=== PATIENT | female | born 1980 | race Two or more races ===

== ENCOUNTER 2021-03-19 11:33 | Emergency (ER) | payer BC, OTHER ==
[~2021-03-19] VITALS: Ht 162.6 cm; Wt 64.0 kg
[2021-03-19] MEDS ORDERED: PANTOPRAZOLE 40 MG/10 ML VIAL INJ IV ONE (12:00)
[2021-03-19] MEDS ORDERED: ONDANSETRON HCL 4 MG/2 ML VIAL IV ONE (12:00)
[2021-03-19] MEDS ORDERED: SODIUM CHLORIDE 0.9% 1,000 ML IVB ONE (12:00)
[2021-03-19 12:12] LABS: Urine Bacteria FEW /hpf (None Seen); Urine Blood Negative /uL (Negative); Urine Mucus MODERATE (None Seen); Urine WBC 5 /hpf (0 - 5)
[2021-03-19 13:40] LABS: Basophils # (auto) 0 10 ^3/uL (0-0.2); Basophils % (auto) 0.3 % (0.0-2.0); Eosinophils # (auto) 0 10 ^3/uL (0-0.8); Eosinophils % (auto) 0.5 % (0.0-7.0); Hematocrit 40.4 % (36.0-46.0); Hemoglobin 13.5 g/dL (12.2-16.2); Lymphocytes # (auto) 1.7 10 ^3/uL (0.4-5.4); Lymphocytes % (auto) 22.8 % (10.0-50.0); Mean Corpuscular Hemoglobin 29.7 pg (28.0-32.0); Mean Corpuscular Hgb Conc. 33.4 g/dL (32.0-36.0); Monocytes # (auto) 0.5 10 ^3/uL (0-1.3); Monocytes % (auto) 6.3 % (0.0-12.0); Neutrophils # (auto) 5.2 10 ^3/uL (1.6-8.6); Neutrophils % (auto) 70.1 % (37.0-80.0); Red Blood Cells 4.54 10^6/uL (4.0-5.20); Red Cell Distribution Width 13.9 % (11.8-14.3); White Blood Cell 7.4 10^3/uL (4.4-10.8)
[2021-03-19 13:56] LABS: Albumin 3.7 g/dL (3.4-5.0); Calcium 8.9 mg/dL (8.5-10.1); Potassium 4.5 mmol/L (3.5-5.1)
[2021-03-19 14:02] LABS: BUN/Creatinine Ratio 25.4; Bilirubin, Total 0.3 mg/dL (0.2-1.0)
[2021-03-19 15:10] VITALS: BP 143/83
== END 2021-03-19 15:30 | disposition home or self-care (01) ==
LOC: ER 11:33
DX: R10.84 Generalized abdominal pain (principal); R07.89 Other chest pain; M19.90 Unspecified osteoarthritis, unspecified site; Z88.0 Allergy status to penicillin
CPT/HCPCS: 36415; 74176; 80053; 81001; 81025; 83690; 85025

== ENCOUNTER 2023-02-20 12:45 | Inpatient (IN) | payer BC ==
[~2023-02-20] VITALS: Ht 162.6 cm; Wt 61.9 kg
[2023-02-20] MEDS ORDERED: SODIUM CHLORIDE 0.9% 1,000 ML IV ONE (13:15)
[2023-02-20 13:51] LABS: Basophils # (auto) 0 10 ^3/uL (0-0.2); Eosinophils # (auto) 0 10 ^3/uL (0-0.8); Lymphocytes # (auto) 1.3 10 ^3/uL (0.4-5.4); White Blood Cell 9.5 10^3/uL (4.4-10.8)
[2023-02-20 13:55] LABS: Basophils % (auto) 0.4 % (0.0-2.0); Hematocrit 38.8 % (36.0-46.0); Hemoglobin 13.1 g/dL (12.2-16.2); Lymphocytes % (auto) 13.5 % (10.0-50.0); Mean Corpuscular Hemoglobin 30.4 pg (28.0-32.0); Mean Corpuscular Hgb Conc. 33.9 g/dL (32.0-36.0); Mean Corpuscular Volume 89.8 fL (80.0-100.0); Monocytes # (auto) 0.8 10 ^3/uL (0-1.3); Monocytes % (auto) 8.7 % (0.0-12.0); Neutrophils # (auto) 7.4 10 ^3/uL (1.6-8.6); Neutrophils % (auto) 77.4 % (37.0-80.0); Red Blood Cells 4.32 10^6/uL (4.0-5.20); Red Cell Distribution Width 20.3 % (11.8-14.3)
[2023-02-20 14:11] LABS: Alanine Aminotransferase 30 U/L (7-40); Albumin 3.4 g/dL (3.2-4.8); Alkaline Phosphatase 229 U/L (46-116); Anion Gap 18 (5-15); Aspartate Aminotransferase 25 U/L (13-40); BUN/Creatinine Ratio 21.4 (10.0-20.0); Bilirubin, Total 0.6 mg/dL (0.2-1.0); Blood Urea Nitrogen 22 mg/dL (9-23); Calcium 8.9 mg/dL (8.5-10.1); Carbon Dioxide 21 mmol/L (20-30); Chloride 94 mmol/L (98-107); Glucose 100 mg/dL (74-106); Potassium 4.9 mmol/L (3.5-5.1); Sodium 133 mmol/L (136-145)
[2023-02-20 14:12] LABS: Total Protein 6.2 g/dL (5.7-8.2)
[2023-02-20 14:25] LABS: Platelet Estimate Markedly Increased
[2023-02-20 14:26] LABS: Giant Platelets Few; Ovalocytes FEW; Stomatocytes Many; Target Cell FEW
[2023-02-20] MEDS ORDERED: LACTATED RINGER'S 2,000 ML IV ONE (16:00)
[2023-02-20 18:37] VITALS: PULSE 125; RESP 22; O2SAT 96
[2023-02-20 18:44] LABS: Urine Bacteria NONE SEEN /hpf (None Seen); Urine Blood Negative /uL (Negative); Urine Clarity HAZY (Clear); Urine Color Yellow (Yellow); Urine Hyaline Cast FEW /lpf (0 - 2); Urine Mucus FEW (None Seen); Urine Protein, UAD 1+ (Negative); Urine WBC 22 /hpf (0 - 5); Urine pH 5.5 (5.0-8.0)
[2023-02-20 19:25] VITALS: PULSE 129; RESP 22; O2SAT 97
[2023-02-20] MEDS ORDERED: ONDANSETRON HCL 4 MG/2 ML VIAL IV ONE (19:45)
[2023-02-20] MEDS ORDERED: HYDROmorphone HCL 2 MG/ML VL/or syr IV ONE (19:45)
[2023-02-20] MEDS ORDERED: PROCHLORPERAZINE EDISYLATE 5 MG/ML 2ML VIAL IV ONE (21:00)
[2023-02-20] MEDS ORDERED: LEVE500T40 PO (23:31)
[2023-02-20] MEDS ORDERED: POTA10TA51 PO (23:31)
[2023-02-20] MEDS ORDERED: MEGE20TA3 PO (23:31)
[2023-02-20] MEDS ORDERED: LOSA50TA46 PO (23:31)
[2023-02-20] MEDS ORDERED: PROC10TA6 PO (23:31)
[2023-02-20] MEDS ORDERED: DULO20CA PO (23:31)
[2023-02-20] MEDS ORDERED: GABA-1250 PO (23:31)
[2023-02-20] MEDS ORDERED: ZOFR4T PO (23:31)
[2023-02-20] MEDS ORDERED: HYDR-4798 PO (23:31)
[2023-02-20] MEDS ORDERED: ERGO1CAP23 PO (23:31)
[2023-02-20] MEDS ORDERED: OLAN20TA PO (23:31)
[2023-02-21] VITALS (7 sets, daily range): BP systolic 122–136; BP diastolic 80–95; PULSE 97–121; RESP 16–19; TEMP 97.1–98.4; O2SAT 97–99
[2023-02-21] MEDS ORDERED: ONDANSETRON HCL 4 MG/2 ML VIAL IV ONE (04:15)
[2023-02-21] MEDS ORDERED: HYDROmorphone HCL 2 MG/ML VL/or syr IV ONE (04:15)
[2023-02-21] MEDS: D5W/SOD CHLO 0.9% 1,000 ML IV SCH ×2 (04:39→18:48)
[2023-02-21] MEDS: ONDANSETRON HCL 4 MG/2 ML VIAL IV PRN ×4 (08:37→20:44)
[2023-02-21] MEDS: MORPHINE SULFATE INJ 2 MG/ml SYRG IV PRN ×3 (08:38→20:47)
[2023-02-21] MEDS: fentaNYL 50MCG/HR 50 MCG/HR PAT TD SCH (12:13)
[2023-02-22] VITALS (8 sets, daily range): BP systolic 130–138; BP diastolic 80–108; PULSE 111–124; RESP 17–95; TEMP 97.1–98; O2SAT 98–100
[2023-02-22] MEDS: ONDANSETRON HCL 4 MG/2 ML VIAL IV PRN ×3 (00:47→20:07)
[2023-02-22] MEDS: MORPHINE SULFATE INJ 2 MG/ml SYRG IV PRN ×4 (00:48→20:10)
[2023-02-22] MEDS ORDERED: MORPHINE SULFATE INJ 2 MG/ml SYRG IV ONE (03:30)
[2023-02-22 05:57] LABS: Basophils # (auto) 0 10 ^3/uL (0-0.2); Basophils % (auto) 0.3 % (0.0-2.0); Eosinophils # (auto) 0 10 ^3/uL (0-0.8); Eosinophils % (auto) 0.2 % (0.0-7.0); Hematocrit 32.7 % (36.0-46.0); Hemoglobin 10.9 g/dL (12.2-16.2); Lymphocytes # (auto) 1.6 10 ^3/uL (0.4-5.4); Lymphocytes % (auto) 17.2 % (10.0-50.0); Mean Corpuscular Hemoglobin 29.9 pg (28.0-32.0); Mean Corpuscular Hgb Conc. 33.2 g/dL (32.0-36.0); Mean Corpuscular Volume 90.2 fL (80.0-100.0); Monocytes # (auto) 1.1 10 ^3/uL (0-1.3); Monocytes % (auto) 11.9 % (0.0-12.0); Neutrophils # (auto) 6.4 10 ^3/uL (1.6-8.6); Neutrophils % (auto) 70.4 % (37.0-80.0); Nucleated Red Blood Cells % 0.1 %; Red Blood Cells 3.62 10^6/uL (4.0-5.20); Red Cell Distribution Width 19.9 % (11.8-14.3)
[2023-02-22 06:10] LABS: Alanine Aminotransferase 20 U/L (7-40); Albumin 3.1 g/dL (3.2-4.8); Alkaline Phosphatase 186 U/L (46-116); Anion Gap 10 (5-15); Aspartate Aminotransferase 19 U/L (13-40); BUN/Creatinine Ratio 18.1 (10.0-20.0); Blood Urea Nitrogen 13 mg/dL (9-23); Calcium 8.1 mg/dL (8.7-10.4); Carbon Dioxide 23 mmol/L (20-30); Chloride 103 mmol/L (98-107); Glucose 122 mg/dL (74-106); Potassium 3.5 mmol/L (3.5-5.1); Sodium 136 mmol/L (136-145)
[2023-02-22 06:11] LABS: Bilirubin, Total 0.5 mg/dL (0.2-1.0); Total Protein 5.6 g/dL (5.7-8.2)
[2023-02-22] MEDS: D5W/SOD CHLO 0.9% 1,000 ML IV SCH ×3 (06:28→21:26)
[2023-02-22] MEDS ORDERED: IOHEXOL 300 MG/ML 100ML BOTTLE IJ ONE (12:15)
[2023-02-22 15:28] LABS: Magnesium 1.9 mg/dL (1.6-2.6)
[2023-02-22 15:29] LABS: Phosphorus 2.4 mg/dL (2.4-5.1)
[2023-02-22] MEDS ORDERED: POTASSIUM PHOSPHATE 22 MEQ in SODIUM CHL 0.9% 100 ML IV ONE (16:30)
[2023-02-22] MEDS ORDERED: TPN PER PHARMACY 0 ML IV SCH (16:30)
[2023-02-22] MEDS ORDERED: AMINO ACID INFUSION IN D10W 1,000 ML IV NR (20:00)
[2023-02-22 23:12] LABS: Gastric Occult Blood Positive (Negative)
[2023-02-23] VITALS (8 sets, daily range): BP systolic 126–135; BP diastolic 89–96; PULSE 108–122; RESP 14–20; TEMP 97.5–98.7; O2SAT 96–100
[2023-02-23] MEDS ORDERED: DEXTROSE (50%) 50ML SYRG IV SCH
[2023-02-23] MEDS: ACCU-CHEK COMFORT CURVE STRIP VI SCH ×4 (00:26→18:00)
[2023-02-23] MEDS: D5W/SOD CHLO 0.9% 1,000 ML IV SCH ×3 (03:15→18:45)
[2023-02-23] MEDS: ONDANSETRON HCL 4 MG/2 ML VIAL IV PRN ×4 (04:14→20:34)
[2023-02-23] MEDS: MORPHINE SULFATE INJ 2 MG/ml SYRG IV PRN ×4 (04:16→20:35)
[2023-02-23] MEDS: InsuLIN REG 1unit/0.01ml Soln (100units/ml) SC SCH ×4 (05:28→18:00)
[2023-02-23 06:21] LABS: Hemoglobin 11.8 g/dL (12.2-16.2); Mean Corpuscular Hemoglobin 29.6 pg (28.0-32.0); Mean Corpuscular Hgb Conc. 32.8 g/dL (32.0-36.0); Mean Corpuscular Volume 90.4 fL (80.0-100.0); Red Blood Cells 3.99 10^6/uL (4.0-5.20); White Blood Cell 8.9 10^3/uL (4.4-10.8)
[2023-02-23 06:37] LABS: Alanine Aminotransferase 19 U/L (7-40); Albumin 3.2 g/dL (3.2-4.8); Alkaline Phosphatase 183 U/L (46-116); Anion Gap 11 (5-15); Aspartate Aminotransferase 21 U/L (13-40); BUN/Creatinine Ratio 16.9 (10.0-20.0); Blood Urea Nitrogen 11 mg/dL (9-23); Calcium 8.2 mg/dL (8.7-10.4); Carbon Dioxide 22 mmol/L (20-30); Chloride 105 mmol/L (98-107); Glucose 118 mg/dL (74-106); Magnesium 1.9 mg/dL (1.6-2.6); Potassium 3.5 mmol/L (3.5-5.1); Sodium 138 mmol/L (136-145)
[2023-02-23 06:38] LABS: Bilirubin, Total 0.7 mg/dL (0.2-1.0); Phosphorus 2.8 mg/dL (2.4-5.1); Total Protein 5.9 g/dL (5.7-8.2)
[2023-02-23 06:48] LABS: Band Neutrophils % (manual) 0; Basophils % (manual) 0 (0.0-2.0); Blast Cells 0; Eosinophils % (manual) 0 (0-7); Metamyelocytes % 0; Myelocytes % 0; Reactive Lymphocytes 0
[2023-02-23 06:51] LABS: Triglycerides 210 mg/dL (< 150)
[2023-02-23 08:33] LABS: Lymphocytes % (manual) 13 (10.0-50.0); Monocytes % (manual) 7 (0-12); Platelet Estimate Increased; Promyelocytes % 1
[2023-02-23] MEDS ORDERED: POTASSIUM CHL 20MEQ/100ML 100 ML IV ONE (13:00)
[2023-02-23] MEDS: cefTRIAXone 1GM/50ML D5W 50 ML IV SCH (13:57)
[2023-02-23] MEDS ORDERED: PPN PER PHARMACY IV NR ×9 (20:00)
[2023-02-24] MEDS: cefTRIAXone 1GM/50ML D5W 50 ML IV SCH (09:00)
[2023-02-24 11:20] LABS: Albumin 3.1 g/dL (3.2-4.8); BUN/Creatinine Ratio 17.5 (10.0-20.0); Calcium 8.2 mg/dL (8.5-10.1); Phosphorus 2.8 mg/dL (2.4-5.1); Potassium 4.2 mmol/L (3.5-5.1)
[2023-02-24] MEDS: fentaNYL 50MCG/HR 50 MCG/HR PAT TD SCH (11:30)
[2023-02-24] MEDS: InsuLIN REG 1unit/0.01ml Soln (100units/ml) SC SCH ×2 (12:00→18:00)
[2023-02-24] MEDS: ACCU-CHEK COMFORT CURVE STRIP VI SCH ×2 (12:00→18:00)
[2023-02-24 16:30] VITALS: BP 136/86; PULSE 130; RESP 86; TEMP 98; O2SAT 97
[2023-02-24] MEDS: MORPHINE SULFATE INJ 2 MG/ml SYRG IV PRN ×2 (17:40→22:32)
[2023-02-24] MEDS: ONDANSETRON HCL 4 MG/2 ML VIAL IV PRN ×2 (17:41→22:09)
[2023-02-24] MEDS ORDERED: PPN PER PHARMACY IV NR ×9 (20:00)
[2023-02-24 20:10] LABS: Basophils # (auto) 0 10 ^3/uL (0-0.2); Basophils % (auto) 0.1 % (0.0-2.0); Eosinophils # (auto) 0 10 ^3/uL (0-0.8); Eosinophils % (auto) 0.1 % (0.0-7.0); Hematocrit 35.9 % (36.0-46.0); Hemoglobin 11.5 g/dL (12.2-16.2); Lymphocytes # (auto) 1.6 10 ^3/uL (0.4-5.4); Lymphocytes % (auto) 13.4 % (10.0-50.0); Mean Corpuscular Hgb Conc. 32.1 g/dL (32.0-36.0); Mean Corpuscular Volume 90.2 fL (80.0-100.0); Monocytes # (auto) 1.2 10 ^3/uL (0-1.3); Monocytes % (auto) 10.2 % (0.0-12.0); Neutrophils # (auto) 9.1 10 ^3/uL (1.6-8.6); Neutrophils % (auto) 76.2 % (37.0-80.0); Nucleated Red Blood Cells % 0.2 %; Red Blood Cells 3.98 10^6/uL (4.0-5.20)
[2023-02-24 20:11] LABS: Red Cell Distribution Width 20.3 % (11.8-14.3)
[2023-02-24 21:34] VITALS: BP 139/97; PULSE 122; RESP 17; TEMP 97.3; O2SAT 97
[2023-02-25] MEDS: ACCU-CHEK COMFORT CURVE STRIP VI SCH ×4 (00:13→18:25)
[2023-02-25] MEDS: ONDANSETRON HCL 4 MG/2 ML VIAL IV PRN ×4 (02:38→18:15)
[2023-02-25] MEDS: MORPHINE SULFATE INJ 2 MG/ml SYRG IV PRN ×4 (02:39→18:23)
[2023-02-25] MEDS: D5W/SOD CHLO 0.9% 1,000 ML IV SCH ×2 (04:10→20:50)
[2023-02-25 04:56] VITALS: BP 122/91; PULSE 117; RESP 18; TEMP 98.2; O2SAT 100
[2023-02-25] MEDS: InsuLIN REG 1unit/0.01ml Soln (100units/ml) SC SCH ×4 (06:00→18:00)
[2023-02-25 06:31] LABS: Alanine Aminotransferase 20 U/L (7-40); Albumin 2.9 g/dL (3.2-4.8); Alkaline Phosphatase 144 U/L (46-116); Anion Gap 8 (5-15); Aspartate Aminotransferase 25 U/L (13-40); BUN/Creatinine Ratio 32.1 (10.0-20.0); Blood Urea Nitrogen 17 mg/dL (9-23); Calcium 7.8 mg/dL (8.7-10.4); Carbon Dioxide 27 mmol/L (20-30); Chloride 102 mmol/L (98-107); Glucose 104 mg/dL (74-106); Magnesium 2.1 mg/dL (1.6-2.6); Potassium 3.9 mmol/L (3.5-5.1); Sodium 137 mmol/L (136-145)
[2023-02-25 06:32] LABS: Bilirubin, Total 0.5 mg/dL (0.2-1.0); Phosphorus 3.3 mg/dL (2.4-5.1); Total Protein 5.1 g/dL (5.7-8.2)
[2023-02-25 08:30] VITALS: BP 136/91; PULSE 116; RESP 17; TEMP 98.3; O2SAT 96
[2023-02-25] MEDS: cefTRIAXone 1GM/50ML D5W 50 ML IV SCH (10:36)
[2023-02-25 12:15] LABS: COVID19 ANTIGEN SOFIA FIA NEGATIVE (NEGATIVE)
[2023-02-25 13:30] VITALS: BP 136/71; PULSE 91; RESP 16; TEMP 98; O2SAT 95
[2023-02-25 16:57] VITALS: BP 124/84; PULSE 121; RESP 19; TEMP 97.5; O2SAT 97
[2023-02-25] MEDS ORDERED: PPN PER PHARMACY IV NR ×9 (20:00)
[2023-02-25 22:00] VITALS: BP 117/80; PULSE 120; RESP 18; TEMP 97.6; O2SAT 99
[2023-02-26] MEDS: ACCU-CHEK COMFORT CURVE STRIP VI SCH ×5 (00:41→23:54)
[2023-02-26] MEDS: ONDANSETRON HCL 4 MG/2 ML VIAL IV PRN (01:52)
[2023-02-26] MEDS: MORPHINE SULFATE INJ 2 MG/ml SYRG IV PRN ×4 (01:53→21:26)
[2023-02-26 05:00] VITALS: BP 109/74; PULSE 122; RESP 18; TEMP 98.4; O2SAT 96
[2023-02-26] MEDS: InsuLIN REG 1unit/0.01ml Soln (100units/ml) SC SCH ×5 (06:15→23:53)
[2023-02-26 06:32] LABS: Alanine Aminotransferase 18 U/L (7-40); Alkaline Phosphatase 121 U/L (46-116); Anion Gap 9 (5-15); Aspartate Aminotransferase 23 U/L (13-40); BUN/Creatinine Ratio 32.6 (10.0-20.0); Blood Urea Nitrogen 15 mg/dL (9-23); Calcium 7.8 mg/dL (8.7-10.4); Carbon Dioxide 26 mmol/L (20-30); Chloride 98 mmol/L (98-107); Glucose 124 mg/dL (74-106); Sodium 133 mmol/L (136-145)
[2023-02-26 06:33] LABS: Bilirubin, Total 0.5 mg/dL (0.2-1.0); Phosphorus 2.5 mg/dL (2.4-5.1); Total Protein 5.3 g/dL (5.7-8.2)
[2023-02-26] MEDS ORDERED: POTASSIUM CHLORIDE 40 MEQ, LIDOCAINE 1% (LOCAL ANESTH.) 4 ML in SODIUM CHL 0.9% 250 ML IV ONE (08:00)
[2023-02-26 09:00] VITALS: BP 109/75; PULSE 109; RESP 75; TEMP 97.5; O2SAT 95
[2023-02-26] MEDS: cefTRIAXone 1GM/50ML D5W 50 ML IV SCH (10:26)
[2023-02-26 13:00] VITALS: BP 112/74; PULSE 114; RESP 16; TEMP 97.3; O2SAT 98
[2023-02-26] MEDS: metroNIDAZOLE 500MG/100ML 100 ML IV SCH ×2 (14:11→22:05)
[2023-02-26] MEDS ORDERED: D5W/SOD CHLO 0.9% 1,000 ML IV SCH (16:30)
[2023-02-26 17:00] VITALS: BP 114/81; PULSE 119; RESP 16; TEMP 97.9; O2SAT 96
[2023-02-26] MEDS: D5W/SOD CHLO 0.9% 1,000 ML IV SCH ×2 (17:57→20:22)
[2023-02-26] MEDS ORDERED: PPN PER PHARMACY IV NR ×21 (20:00)
[2023-02-26 22:00] VITALS: BP 117/78; PULSE 123; RESP 18; TEMP 97.4; O2SAT 98
[2023-02-27] MEDS: MORPHINE SULFATE INJ 2 MG/ml SYRG IV PRN ×6 (00:49→20:49)
[2023-02-27 05:00] VITALS: BP 106/64; PULSE 107; RESP 18; TEMP 98.3; O2SAT 100
[2023-02-27 05:17] LABS: Anion Gap 6 (5-15); Carbon Dioxide 29 mmol/L (20-30); Chloride 97 mmol/L (98-107); Potassium 3.8 mmol/L (3.5-5.1); Sodium 132 mmol/L (136-145)
[2023-02-27 05:19] LABS: Calcium 8.2 mg/dL (8.7-10.4)
[2023-02-27 05:23] LABS: BUN/Creatinine Ratio 31.4 (10.0-20.0); Blood Urea Nitrogen 16 mg/dL (9-23); Glucose 109 mg/dL (74-106)
[2023-02-27 05:26] LABS: Phosphorus 2.7 mg/dL (2.4-5.1)
[2023-02-27] MEDS: InsuLIN REG 1unit/0.01ml Soln (100units/ml) SC SCH ×3 (05:35→17:15)
[2023-02-27] MEDS: metroNIDAZOLE 500MG/100ML 100 ML IV SCH ×3 (05:35→20:52)
[2023-02-27] MEDS: ACCU-CHEK COMFORT CURVE STRIP VI SCH ×3 (05:35→17:15)
[2023-02-27 09:00] VITALS: BP 113/70; PULSE 120; RESP 18; TEMP 98.1; O2SAT 96
[2023-02-27 09:29] LABS: Triglycerides 295 mg/dL (< 150)
[2023-02-27] MEDS: cefTRIAXone 1GM/50ML D5W 50 ML IV SCH (10:50)
[2023-02-27] MEDS: fentaNYL 50MCG/HR 50 MCG/HR PAT TD SCH (11:30)
[2023-02-27 13:00] VITALS: BP 111/76; PULSE 121; RESP 17; TEMP 98.5; O2SAT 99
[2023-02-27 17:00] VITALS: BP 107/72; PULSE 120; RESP 19; TEMP 97.3; O2SAT 98
[2023-02-27] MEDS: D5W/SOD CHLO 0.9% 1,000 ML IV SCH (19:34)
[2023-02-27] MEDS ORDERED: TPN PER PHARMACY IV NR ×10 (20:00)
[2023-02-27 22:00] VITALS: BP 112/77; PULSE 127; RESP 17; TEMP 98.1; O2SAT 100
[2023-02-28] MEDS: ACCU-CHEK COMFORT CURVE STRIP VI SCH ×4 (00:34→17:28)
[2023-02-28] MEDS: MORPHINE SULFATE INJ 2 MG/ml SYRG IV PRN ×4 (02:11→16:33)
[2023-02-28 05:00] VITALS: BP 108/71; PULSE 129; RESP 19; TEMP 98; O2SAT 97
[2023-02-28] MEDS: metroNIDAZOLE 500MG/100ML 100 ML IV SCH ×2 (05:36→13:28)
[2023-02-28] MEDS: InsuLIN REG 1unit/0.01ml Soln (100units/ml) SC SCH ×4 (05:39→17:28)
[2023-02-28 08:00] VITALS: PULSE 119; RESP 20; O2SAT 95
[2023-02-28 08:40] VITALS: BP 108/70; PULSE 119; RESP 17; TEMP 98; O2SAT 100
[2023-02-28] MEDS: cefTRIAXone 1GM/50ML D5W 50 ML IV SCH (08:45)
[2023-02-28 10:22] LABS: Basophils # (auto) 0 10 ^3/uL (0-0.2); Basophils % (auto) 0.2 % (0.0-2.0); Eosinophils # (auto) 0 10 ^3/uL (0-0.8); Eosinophils % (auto) 0.1 % (0.0-7.0); Hematocrit 29.6 % (36.0-46.0); Hemoglobin 9.7 g/dL (12.2-16.2); Mean Corpuscular Hemoglobin 29.4 pg (28.0-32.0); Mean Corpuscular Hgb Conc. 32.7 g/dL (32.0-36.0); Mean Corpuscular Volume 89.9 fL (80.0-100.0); Monocytes # (auto) 1.5 10 ^3/uL (0-1.3); Monocytes % (auto) 8.4 % (0.0-12.0); Neutrophils # (auto) 14.8 10 ^3/uL (1.6-8.6); Neutrophils % (auto) 85.3 % (37.0-80.0); Red Blood Cells 3.29 10^6/uL (4.0-5.20); Red Cell Distribution Width 19.4 % (11.8-14.3); White Blood Cell 17.3 10^3/uL (4.4-10.8)
[2023-02-28 10:36] LABS: Potassium 3.3 mmol/L (3.5-5.1)
[2023-02-28 10:42] LABS: BUN/Creatinine Ratio 35.7 (10.0-20.0)
[2023-02-28 10:44] LABS: Albumin 3.1 g/dL (3.2-4.8); Phosphorus 3.7 mg/dL (2.4-5.1)
[2023-02-28] MEDS ORDERED: POTASSIUM CHL 20MEQ/100ML 100 ML IV ONE (11:45)
[2023-02-28 13:00] VITALS: BP 110/75; PULSE 127; RESP 16; TEMP 98; O2SAT 100
[2023-02-28 13:18] LABS: Magnesium 1.9 mg/dL (1.6-2.6)
[2023-02-28 16:49] VITALS: BP 144/95; PULSE 128; RESP 16; TEMP 98.1; O2SAT 100
[2023-02-28 17:27] VITALS: BP 112/68; PULSE 110; RESP 20
[2023-02-28] MEDS ORDERED: TPN PER PHARMACY IV NR ×10 (20:00)
== END 2023-02-28 19:08 | disposition home or self-care (01) | DRG 872 ==
LOC: ER 12:45 → OVERFLOW 02-21 04:11 → CENTRAL 02-21 10:17 → TELE-CENTR 02-21 11:59 → CENTRAL 02-23 18:53
PROVIDERS: ADMIT Nurse Practitioner; ATTEND Nurse Practitioner Acute Care
PROC: 0D9670Z Drainage of Stomach with Drainage Device, Via Natural or Artificial Opening (ICD-10-PCS; principal; 2023-02-22)
DX: A41.9 Sepsis, unspecified organism (principal); C16.9 Malignant neoplasm of stomach, unspecified; K31.1 Adult hypertrophic pyloric stenosis; N13.6 Pyonephrosis; G93.40 Encephalopathy, unspecified; R64 Cachexia; K56.609 Unspecified intestinal obstruction, unspecified as to partial versus complete obstruction; D69.6 Thrombocytopenia, unspecified; D75.839 Thrombocytosis, unspecified; M19.90 Unspecified osteoarthritis, unspecified site; R79.89 Other specified abnormal findings of blood chemistry; Z20.822 Contact with and (suspected) exposure to COVID-19; Z85.028 Personal history of other malignant neoplasm of stomach; Z68.23 Body mass index [BMI] 23.0-23.9, adult; Z88.0 Allergy status to penicillin; Z92.21 Personal history of antineoplastic chemotherapy; Z83.3 Family history of diabetes mellitus
CPT/HCPCS: 36415; 71045; 74018; 74177; 80048; 80053; 80069; 81001; 82271; 82962; 83605; 83735; 84100; 84478; 84484; 85007; 85025; 85027; 87426; 93005; 93306; 96361; 96374; 96375; G0378; J0696; J1815; J2001; J2405; J3480; J3490; J7042; J7060; J7131

== ENCOUNTER 2023-03-02 02:23 | Inpatient (IN) | payer BC ==
[~2023-03-02] VITALS: Ht 162.6 cm; Wt 75.7 kg
[~2023-03-02 02:23] MED LIST: DULO20CA PO; ERGO1CAP23 PO; GABA-1250 PO; HYDR-4798 PO; LEVE500T40 PO; LOSA50TA46 PO; MEGE20TA3 PO; OLAN20TA PO; POTA10TA51 PO; PROC10TA6 PO; ZOFR4T PO
[2023-03-02 02:28] VITALS: PULSE 112; RESP 30; O2SAT 95
[2023-03-02] MEDS ORDERED: IODIXANOL 320MG/ML 100ML BTL IV ONE (03:13)
[2023-03-02 03:15] LABS: Eosinophils # (auto) 0 10 ^3/uL (0-0.8); Nucleated Red Blood Cells % 0.1 %
[2023-03-02 03:16] LABS: Basophils # (auto) 0 10 ^3/uL (0-0.2); Basophils % (auto) 0.1 % (0.0-2.0); Hematocrit 33.1 % (36.0-46.0); Lymphocytes % (auto) 4.4 % (10.0-50.0); Mean Corpuscular Hemoglobin 29.8 pg (28.0-32.0); Mean Corpuscular Hgb Conc. 33.2 g/dL (32.0-36.0); Mean Corpuscular Volume 89.8 fL (80.0-100.0); Monocytes # (auto) 0.9 10 ^3/uL (0-1.3); Monocytes % (auto) 4.2 % (0.0-12.0); Neutrophils # (auto) 20.2 10 ^3/uL (1.6-8.6); Neutrophils % (auto) 91.3 % (37.0-80.0); Red Blood Cells 3.69 10^6/uL (4.0-5.20); Red Cell Distribution Width 19.5 % (11.8-14.3); White Blood Cell 22.1 10^3/uL (4.4-10.8)
[2023-03-02 03:24] LABS: Alanine Aminotransferase 27 U/L (7-40); Albumin 3.8 g/dL (3.2-4.8); Alkaline Phosphatase 153 U/L (46-116); Anion Gap 8 (5-15); Aspartate Aminotransferase 30 U/L (13-40); BUN/Creatinine Ratio 19.5 (10.0-20.0); Carbon Dioxide 29 mmol/L (20-30); Chloride 95 mmol/L (98-107); Magnesium 2.1 mg/dL (1.6-2.6); Potassium 4.3 mmol/L (3.5-5.1); Sodium 132 mmol/L (136-145)
[2023-03-02 03:25] LABS: Bilirubin, Total 0.5 mg/dL (0.2-1.0); Total Protein 6.7 g/dL (5.7-8.2)
[2023-03-02 03:27] LABS: Blood Urea Nitrogen 26 mg/dL (9-23)
[2023-03-02 03:30] LABS: INR 1.04 (0.9-1.15); Partial Thromboplastin Time < 20.0 SEC (24.5-34.5); Prothrombin Time 10.9 sec (9.3-11.8)
[2023-03-02 04:12] LABS: Glucose 120 mg/dL (74-106)
[2023-03-02] MEDS ORDERED: PIPERACILLIN-TAZOB 3.375GM 100 ML IV ONE (05:00)
[2023-03-02 05:05] LABS: Blood Alcohol < 3.0 mg/dL (<10)
[2023-03-02] MEDS ORDERED: levoFLOXacin 750MG 150 ML IV ONE (05:15)
[2023-03-02 08:00] VITALS: PULSE 110; RESP 23; O2SAT 100
[2023-03-02] MEDS ORDERED: NITROGLYCERIN 0.4 MG SL TAB SL PRN (09:00)
[2023-03-02] MEDS ORDERED: AZITHROMYCIN 500MG/ 250ML 250 ML IV ONE (09:00)
[2023-03-02] MEDS ORDERED: CEFEPIME 1GM/ 50ML 50 ML IV ONE (09:00)
[2023-03-02] MEDS ORDERED: MORPHINE SULFATE INJ 2 MG/ml SYRG IV PRN (09:00)
[2023-03-02] MEDS ORDERED: ALBUTEROL SULF 2.5 MG/0.5ML(0.5%) NEB SOLN NEB PRN (09:15)
[2023-03-02] MEDS ORDERED: HYDROcodone-ACET 10/325MG TAB PO PRN (09:15)
[2023-03-02 09:28] VITALS: BP 129/65; PULSE 112; RESP 20; TEMP 97.6; O2SAT 100
[2023-03-02 09:55] VITALS: O2SAT 100
[2023-03-02] MEDS: ERGOCALCIFEROL 50,000 UNIT(1.25MG) CAP PO SCH ×2 (10:00→10:14)
[2023-03-02] MEDS: levETIRAcetam 500 MG TAB PO SCH ×3 (10:00→21:39)
[2023-03-02] MEDS: LOSARTAN POTASSIUM 50 MG TAB PO SCH ×2 (10:00→10:15)
[2023-03-02] MEDS: CEFEPIME 1GM/ 50ML 50 ML IV SCH ×2 (10:13→21:39)
[2023-03-02] MEDS: ENOXAPARIN SOD 40 MG/0.4 ML SYRINGE SC SCH (10:14)
[2023-03-02] MEDS: DULoxetine HCL 30 MG CAP PO SCH ×2 (10:54→21:50)
[2023-03-02] MEDS: SODIUM CHLORIDE 0.9% 1,000 ML IV SCH ×2 (11:14→22:20)
[2023-03-02] MEDS ORDERED: ERGOCALCIFEROL 50,000 UNIT(1.25MG) CAP PO SCH (11:15)
[2023-03-02 13:06] LABS: Urine Blood 2+ /uL (Negative); Urine Clarity HAZY (Clear); Urine Color PINK (Yellow); Urine Mucus MODERATE (None Seen); Urine Protein, UAD 2+ (Negative); Urine Urobilinogen Normal (Negative); Urine WBC 30 /hpf (0 - 5); Urine pH 5.5 (5.0-8.0)
[2023-03-02] MEDS ORDERED: SODIUM CHLORIDE 0.9% 1,000 ML IV ONE (13:15)
[2023-03-02 13:17] LABS: Amphetamine Screen, Urine Neg (NEGATIVE); Barbiturate Scree,Urine Neg (NEGATIVE); Benzodiazephine Screen, Urine Neg (NEGATIVE); Cannabinoid Screen, Urine Neg (NEGATIVE); Cocaine Screen, Urine Neg (NEGATIVE); Opiate Scree,Urine Pos (NEGATIVE); Phencyclidine Screen, Urine Neg (NEGATIVE)
[2023-03-02 13:25] LABS: Urine Bacteria FEW /hpf (None Seen)
[2023-03-02] MEDS ORDERED: MEGE1SUS5 PO (15:56)
[2023-03-02] MEDS ORDERED: DULO1CAP5 PO (15:56)
[2023-03-02] MEDS: OLANZAPINE 20 MG PO SCH (18:00)
[2023-03-02 18:38] VITALS: PULSE 126; RESP 24; O2SAT 100
[2023-03-02] MEDS ORDERED: HYDROcodone-ACET 7.5/325MG TAB PO ONE (21:30)
[2023-03-02] MEDS: ONDANSETRON HCL 4 MG/2 ML VIAL IV PRN (21:52)
[2023-03-03] MEDS: ONDANSETRON HCL 4 MG/2 ML VIAL IV PRN ×2 (04:21→18:50)
[2023-03-03] MEDS: MORPHINE SULFATE INJ 2 MG/ml SYRG IV PRN ×3 (04:27→22:54)
[2023-03-03] MEDS ORDERED: SODIUM CHLORIDE 0.9% 1,000 ML IV ONE (04:45)
[2023-03-03] MEDS ORDERED: dilTIAZem 25 MG/5 ML VIAL IV ONE (04:45)
[2023-03-03 05:52] VITALS: O2SAT 99
[2023-03-03] MEDS ORDERED: LABETALOL HCL 5 MG/ML 4ML SYRINGE IV ONE ×2 (06:00→06:06)
[2023-03-03 06:18] LABS: Basophils # (auto) 0 10 ^3/uL (0-0.2); Eosinophils # (auto) 0 10 ^3/uL (0-0.8); Hemoglobin 7.9 g/dL (12.2-16.2); Lymphocytes # (auto) 0.7 10 ^3/uL (0.4-5.4)
[2023-03-03 06:20] LABS: Basophils % (auto) 0.1 % (0.0-2.0); Hematocrit 23.9 % (36.0-46.0); Lymphocytes % (auto) 3.7 % (10.0-50.0); Mean Corpuscular Hemoglobin 29.9 pg (28.0-32.0); Mean Corpuscular Hgb Conc. 33.1 g/dL (32.0-36.0); Mean Corpuscular Volume 90.4 fL (80.0-100.0); Monocytes # (auto) 1.2 10 ^3/uL (0-1.3); Monocytes % (auto) 6.1 % (0.0-12.0); Neutrophils # (auto) 17.4 10 ^3/uL (1.6-8.6); Neutrophils % (auto) 90.1 % (37.0-80.0); Nucleated Red Blood Cells % 0.1 %; Red Blood Cells 2.64 10^6/uL (4.0-5.20); White Blood Cell 19.3 10^3/uL (4.4-10.8)
[2023-03-03 06:24] LABS: Alanine Aminotransferase 15 U/L (7-40); Albumin 2.9 g/dL (3.2-4.8); Alkaline Phosphatase 102 U/L (46-116); Anion Gap 8 (5-15); Aspartate Aminotransferase 15 U/L (13-40); BUN/Creatinine Ratio 17.6 (10.0-20.0); Bilirubin, Total 0.4 mg/dL (0.2-1.0); Blood Urea Nitrogen 30 mg/dL (9-23); Calcium 7.9 mg/dL (8.7-10.4); Carbon Dioxide 25 mmol/L (20-30); Chloride 100 mmol/L (98-107); Potassium 3.7 mmol/L (3.5-5.1); Sodium 133 mmol/L (136-145)
[2023-03-03 06:25] LABS: Total Protein 5.3 g/dL (5.7-8.2)
[2023-03-03 07:55] VITALS: PULSE 109; RESP 35; O2SAT 100
[2023-03-03 07:56] LABS: Glucose 103 mg/dL (74-106)
[2023-03-03] MEDS: CEFEPIME 1GM/ 50ML 50 ML IV SCH ×2 (09:48→21:44)
[2023-03-03] MEDS ORDERED: MEGESTROL ACET 400MG/10ML ORAL SUSP PO SCH (10:00)
[2023-03-03] MEDS ORDERED: AZITHROMYCIN 500MG/ 250ML 250 ML IV SCH (10:00)
[2023-03-03] MEDS: DULoxetine HCL 30 MG CAP PO SCH ×2 (11:01→22:44)
[2023-03-03] MEDS: levETIRAcetam 500 MG TAB PO SCH ×2 (11:01→22:44)
[2023-03-03] MEDS: ENOXAPARIN SOD 40 MG/0.4 ML SYRINGE SC SCH (11:02)
[2023-03-03] MEDS: LOSARTAN POTASSIUM 50 MG TAB PO SCH (11:02)
[2023-03-03] MEDS: SODIUM CHLORIDE 0.9% 1,000 ML IV SCH (11:40)
[2023-03-03] MEDS ORDERED: LINEZOLID 600MG/300ML 300 ML IV SCH (12:45)
[2023-03-03] MEDS ORDERED: DEXTROSE (50%) 50ML SYRG IV PRN (13:00)
[2023-03-03] MEDS: ACCU-CHEK COMFORT CURVE STRIP VI SCH ×3 (14:30→22:00)
[2023-03-03] MEDS: OLANZAPINE 20 MG PO SCH (18:00)
[2023-03-03 19:10] VITALS: O2SAT 99
[2023-03-03 19:30] VITALS: PULSE 130; RESP 26; O2SAT 100
[2023-03-03] MEDS: LINEZOLID 600MG/300ML 300 ML IV SCH (22:47)
[2023-03-03 23:58] VITALS: BP 87/43; PULSE 120; PULSE 125; RESP 20; O2SAT 99
[2023-03-04] VITALS (11 sets, daily range): BP systolic 86–98; BP diastolic 32–67; PULSE 114–133; RESP 16–18; TEMP 97.4–98.8; O2SAT 94–100
[2023-03-04] MEDS ORDERED: levETIRAcetam 500 MG/5ML INJ IV ONE (00:18)
[2023-03-04] MEDS: SODIUM CHLORIDE 0.9% 1,000 ML IV SCH (00:54)
[2023-03-04] MEDS: HYDROcodone-ACET 10/325MG TAB PO PRN ×3 (01:54→22:12)
[2023-03-04] MEDS: ACCU-CHEK COMFORT CURVE STRIP VI SCH ×6 (02:00→21:49)
[2023-03-04] MEDS ORDERED: SODIUM CHLORIDE 0.9% 500 ML IV ONE (03:45)
[2023-03-04] MEDS ORDERED: SODIUM CHLORIDE 0.9% 1,000 ML IV SCH (05:30)
[2023-03-04] MEDS: MIDODRINE HCL 10 MG TAB PO SCH ×3 (06:08→18:17)
[2023-03-04 07:03] LABS: Alanine Aminotransferase 16 U/L (7-40); Alkaline Phosphatase 97 U/L (46-116); Anion Gap 8 (5-15); BUN/Creatinine Ratio 13.8 (10.0-20.0); Blood Urea Nitrogen 33 mg/dL (9-23); Carbon Dioxide 25 mmol/L (20-30); Chloride 100 mmol/L (98-107); Glucose 93 mg/dL (74-106); Potassium 3.9 mmol/L (3.5-5.1); Sodium 133 mmol/L (136-145)
[2023-03-04 07:04] LABS: Aspartate Aminotransferase 22 U/L (13-40); Bilirubin, Total 0.4 mg/dL (0.2-1.0); Total Protein 5.4 g/dL (5.7-8.2)
[2023-03-04 07:16] LABS: Basophils # (auto) 0 10 ^3/uL (0-0.2); Eosinophils # (auto) 0 10 ^3/uL (0-0.8); Eosinophils % (auto) 0.2 % (0.0-7.0); Hemoglobin 7.6 g/dL (12.2-16.2); Mean Corpuscular Volume 91.1 fL (80.0-100.0); Nucleated Red Blood Cells % 0.1 %
[2023-03-04 07:18] LABS: Basophils % (auto) 0.2 % (0.0-2.0); Hematocrit 23.4 % (36.0-46.0); Lymphocytes # (auto) 1.1 10 ^3/uL (0.4-5.4); Lymphocytes % (auto) 6.3 % (10.0-50.0); Mean Corpuscular Hemoglobin 29.7 pg (28.0-32.0); Mean Corpuscular Hgb Conc. 32.6 g/dL (32.0-36.0); Monocytes % (auto) 5.6 % (0.0-12.0); Neutrophils # (auto) 15.5 10 ^3/uL (1.6-8.6); Neutrophils % (auto) 87.7 % (37.0-80.0); Red Blood Cells 2.57 10^6/uL (4.0-5.20); White Blood Cell 17.7 10^3/uL (4.4-10.8)
[2023-03-04 07:21] LABS: Red Cell Distribution Width 20.2 % (11.8-14.3)
[2023-03-04] MEDS: CEFEPIME 1GM/ 50ML 50 ML IV SCH ×2 (09:52→21:46)
[2023-03-04] MEDS: DULoxetine HCL 30 MG CAP PO SCH ×2 (10:00→21:49)
[2023-03-04] MEDS: LOSARTAN POTASSIUM 50 MG TAB PO SCH (10:00)
[2023-03-04] MEDS ORDERED: ENOXAPARIN SOD 30 MG/0.3 ML SYRINGE SC SCH (10:00)
[2023-03-04] MEDS: LINEZOLID 600MG/300ML 300 ML IV SCH ×2 (10:02→21:49)
[2023-03-04] MEDS: MEGESTROL ACET 400MG/10ML ORAL SUSP PO SCH (13:03)
[2023-03-04] MEDS: OLANZAPINE 20 MG PO SCH (18:00)
[2023-03-04] MEDS: HEPARIN SODIUM (PORCINE) 5000 UNITS/ML 1ML VIAL SC SCH (21:55)
[2023-03-04] MEDS: ONDANSETRON HCL 4 MG/2 ML VIAL IV PRN (22:11)
[2023-03-05] VITALS (32 sets, daily range): BP systolic 83–111; BP diastolic 44–77; PULSE 65–136; RESP 14–34; TEMP 97.5–98.6; O2SAT 76–100
[2023-03-05] MEDS: ACCU-CHEK COMFORT CURVE STRIP VI SCH ×5 (01:34→21:56)
[2023-03-05 02:18] LABS: COVID19 ANTIGEN SOFIA FIA NEGATIVE (NEGATIVE); Rapid Influenza A Negative (Negative); Rapid Influenza B Negative (Negative)
[2023-03-05] MEDS ORDERED: ACETAMINOPHEN 500 MG TAB PO PRN ×2 (03:30→03:45)
[2023-03-05] MEDS ORDERED: MIDODRINE HCL 10 MG TAB PO ONE (03:30)
[2023-03-05] MEDS: LOSARTAN POTASSIUM 50 MG TAB PO SCH (09:05)
[2023-03-05] MEDS: HYDROcodone-ACET 10/325MG TAB PO PRN ×2 (09:32→17:20)
[2023-03-05] MEDS: MEGESTROL ACET 400MG/10ML ORAL SUSP PO SCH (09:36)
[2023-03-05] MEDS: CEFEPIME 1GM/ 50ML 50 ML IV SCH ×2 (09:38→21:09)
[2023-03-05] MEDS: LINEZOLID 600MG/300ML 300 ML IV SCH ×2 (09:39→21:53)
[2023-03-05] MEDS: DULoxetine HCL 30 MG CAP PO SCH ×2 (09:39→21:53)
[2023-03-05] MEDS: HEPARIN SODIUM (PORCINE) 5000 UNITS/ML 1ML VIAL SC SCH ×2 (09:57→21:56)
[2023-03-05 10:11] LABS: Anion Gap 11 (5-15); Carbon Dioxide 28 mmol/L (20-30); Chloride 94 mmol/L (98-107); Potassium 3.8 mmol/L (3.5-5.1); Sodium 133 mmol/L (136-145)
[2023-03-05 10:12] LABS: Calcium 8.3 mg/dL (8.5-10.1)
[2023-03-05 10:17] LABS: BUN/Creatinine Ratio 16.7 (10.0-20.0); Glucose 88 mg/dL (74-106)
[2023-03-05 10:20] LABS: Blood Urea Nitrogen 54 mg/dL (9-23)
[2023-03-05 10:25] LABS: Basophils # (auto) 0 10 ^3/uL (0-0.2); Basophils % (auto) 0.2 % (0.0-2.0); Eosinophils # (auto) 0 10 ^3/uL (0-0.8); Eosinophils % (auto) 0.1 % (0.0-7.0); Hematocrit 25.5 % (36.0-46.0); Hemoglobin 8.4 g/dL (12.2-16.2); Lymphocytes % (auto) 5.3 % (10.0-50.0); Mean Corpuscular Hemoglobin 29.7 pg (28.0-32.0); Mean Corpuscular Hgb Conc. 33.1 g/dL (32.0-36.0); Mean Corpuscular Volume 89.6 fL (80.0-100.0); Monocytes # (auto) 1.2 10 ^3/uL (0-1.3); Monocytes % (auto) 6.3 % (0.0-12.0); Neutrophils # (auto) 16.1 10 ^3/uL (1.6-8.6); Neutrophils % (auto) 88.1 % (37.0-80.0); Nucleated Red Blood Cells % 0.1 %; Red Blood Cells 2.84 10^6/uL (4.0-5.20); Red Cell Distribution Width 19.2 % (11.8-14.3); White Blood Cell 18.3 10^3/uL (4.4-10.8)
[2023-03-05 10:44] LABS: Magnesium 1.8 mg/dL (1.6-2.6)
[2023-03-05] MEDS: MIDODRINE HCL 10 MG TAB PO SCH ×2 (11:58→17:20)
[2023-03-05] MEDS ORDERED: PANTOPRAZOLE 40 MG/10 ML VIAL INJ IV ONE (17:30)
[2023-03-05] MEDS ORDERED: SODIUM CHLORIDE 0.9% 1,000 ML IV ONE (17:30)
[2023-03-05] MEDS: OLANZAPINE 20 MG PO SCH (18:00)
[2023-03-05 18:50] LABS: Hematocrit 24.7 % (36.0-46.0); Hemoglobin 7.8 g/dL (12.2-16.2)
[2023-03-05 19:00] LABS: INR 1.07 (0.9-1.15); Prothrombin Time 11.2 sec (9.3-11.8)
[2023-03-05 19:01] LABS: Lipase 44 U/L (12-53)
[2023-03-05] MEDS: MORPHINE SULFATE INJ 2 MG/ml SYRG IV PRN ×2 (19:25→23:59)
[2023-03-05 20:07] LABS: Amylase 43 U/L (30-118)
[2023-03-05] MEDS: SODIUM CHLORIDE 0.9% 1,000 ML IV SCH (21:09)
[2023-03-06] VITALS (96 sets, daily range): BP systolic 83–124; BP diastolic 48–75; PULSE 100–137; RESP 16–29; TEMP 96.7–99; O2SAT 98–100
[2023-03-06 00:04] LABS: Hematocrit 23.2 % (36.0-46.0); Hemoglobin 7.5 g/dL (12.2-16.2)
[2023-03-06] MEDS: HYDROcodone-ACET 10/325MG TAB PO PRN ×2 (02:02→08:27)
[2023-03-06] MEDS: ACCU-CHEK COMFORT CURVE STRIP VI SCH ×3 (02:02→08:54)
[2023-03-06] MEDS: SODIUM CHLORIDE 0.9% 1,000 ML IV SCH ×4 (03:30→20:35)
[2023-03-06] MEDS: MORPHINE SULFATE INJ 2 MG/ml SYRG IV PRN ×4 (04:30→21:21)
[2023-03-06] MEDS: MIDODRINE HCL 10 MG TAB PO SCH ×3 (05:59→16:07)
[2023-03-06 07:02] LABS: Alanine Aminotransferase 22 U/L (7-40); Albumin 2.7 g/dL (3.2-4.8); Alkaline Phosphatase 100 U/L (46-116); Anion Gap 11 (5-15); Aspartate Aminotransferase 28 U/L (13-40); BUN/Creatinine Ratio 17.6 (10.0-20.0); Bilirubin, Total 0.3 mg/dL (0.2-1.0); Blood Urea Nitrogen 60 mg/dL (9-23); Calcium 7.7 mg/dL (8.7-10.4); Carbon Dioxide 26 mmol/L (20-30); Chloride 97 mmol/L (98-107); Glucose 90 mg/dL (74-106); Lipase 27 U/L (12-53); Potassium 3.7 mmol/L (3.5-5.1); Sodium 134 mmol/L (136-145); Total Protein 4.9 g/dL (5.7-8.2)
[2023-03-06 07:24] LABS: Eosinophils # (auto) 0 10 ^3/uL (0-0.8); Eosinophils % (auto) 0.1 % (0.0-7.0); Hemoglobin 7.9 g/dL (12.2-16.2); Neutrophils # (auto) 18.5 10 ^3/uL (1.6-8.6)
[2023-03-06 07:26] LABS: Basophils # (auto) 0.1 10 ^3/uL (0-0.2); Basophils % (auto) 0.3 % (0.0-2.0); Hematocrit 24.4 % (36.0-46.0); Lymphocytes % (auto) 4.9 % (10.0-50.0); Mean Corpuscular Hemoglobin 29.3 pg (28.0-32.0); Mean Corpuscular Hgb Conc. 32.5 g/dL (32.0-36.0); Mean Corpuscular Volume 90.3 fL (80.0-100.0); Monocytes # (auto) 0.7 10 ^3/uL (0-1.3); Monocytes % (auto) 3.4 % (0.0-12.0); Neutrophils % (auto) 91.3 % (37.0-80.0); Red Cell Distribution Width 19.3 % (11.8-14.3); White Blood Cell 20.3 10^3/uL (4.4-10.8)
[2023-03-06 07:31] LABS: Amylase 29 U/L (30-118)
[2023-03-06] MEDS ORDERED: GASTROGRAFIN 120 ML SOL ONE (08:43)
[2023-03-06] MEDS: HEPARIN SODIUM (PORCINE) 5000 UNITS/ML 1ML VIAL SC SCH ×2 (08:53→21:26)
[2023-03-06] MEDS: DULoxetine HCL 30 MG CAP PO SCH ×2 (08:54→21:27)
[2023-03-06] MEDS: PANTOPRAZOLE 40 MG/10 ML VIAL INJ IV SCH (08:54)
[2023-03-06] MEDS: CEFEPIME 1GM/ 50ML 50 ML IV SCH ×2 (08:54→21:20)
[2023-03-06] MEDS ORDERED: SODIUM CHLORIDE 0.9% 1,000 ML IV ONE (09:45)
[2023-03-06] MEDS ORDERED: HYDROcodone-ACET 10/325MG TAB PO PRN ×2 (10:45→11:15)
[2023-03-06] MEDS: LINEZOLID 600MG/300ML 300 ML IV SCH ×2 (11:53→21:26)
[2023-03-06] MEDS: MEGESTROL ACET 400MG/10ML ORAL SUSP PO SCH (11:53)
[2023-03-06 11:54] LABS: Urine Bacteria NONE SEEN /hpf (None Seen); Urine Blood 3+ /uL (Negative); Urine Budding Yeast LOADED /hpf (None Seen); Urine Clarity CLOUDY (Clear); Urine Color Yellow (Yellow); Urine Mucus FEW (None Seen); Urine Protein, UAD 2+ (Negative); Urine Specific Gravity 1.029 (1.001-1.035); Urine Urobilinogen Normal (Negative); Urine WBC 32 /hpf (0 - 5); Urine pH 5.5 (5.0-8.0)
[2023-03-06 11:59] LABS: Creatinine, Urine 111.95 mg/dL (30.0-125.0)
[2023-03-06 12:02] LABS: Urine Protein/Creatinine Ratio 2.49
[2023-03-06 12:03] LABS: Magnesium 1.8 mg/dL (1.6-2.6)
[2023-03-06] MEDS ORDERED: LIDOCAINE 1% (LOCAL ANESTH.) PF 5ml SDV ID ONE (13:45)
[2023-03-06] MEDS ORDERED: ALBUTEROL MEDNEB 2.5 mg/3ml NEB NEB PRN (14:00)
[2023-03-06] MEDS: OLANZAPINE 20 MG PO SCH (16:06)
[2023-03-06] MEDS: LORazepam 2MG/ML-1ML VIAL IV PRN (18:16)
[2023-03-06] MEDS: METOCLOPRAMIDE HCL 5MG/ml INJ 2ml VIAL IV SCH (21:25)
[2023-03-06] MEDS: SODIUM CHLOR 0.9% PF (SALINE LOCK) 10ML VIAL/SYR IV SCH (21:26)
[2023-03-07] VITALS (98 sets, daily range): BP systolic 78–116; BP diastolic 42–71; PULSE 94–134; RESP 14–26; TEMP 97–98.2; O2SAT 97–100
[2023-03-07] MEDS: LORazepam 2MG/ML-1ML VIAL IV PRN (00:15)
[2023-03-07] MEDS: MORPHINE SULFATE INJ 2 MG/ml SYRG IV PRN ×3 (02:43→13:22)
[2023-03-07 04:30] LABS: Mean Corpuscular Volume 92.1 fL (80.0-100.0)
[2023-03-07 04:32] LABS: Hemoglobin 7.2 g/dL (12.2-16.2); Mean Corpuscular Hemoglobin 30.1 pg (28.0-32.0); Mean Corpuscular Hgb Conc. 32.7 g/dL (32.0-36.0); Red Blood Cells 2.39 10^6/uL (4.0-5.20); Red Cell Distribution Width 19.3 % (11.8-14.3); White Blood Cell 22.1 10^3/uL (4.4-10.8)
[2023-03-07] MEDS: SODIUM CHLORIDE 0.9% 1,000 ML IV SCH (04:46)
[2023-03-07 04:47] LABS: Alanine Aminotransferase 18 U/L (7-40); Albumin 2.7 g/dL (3.2-4.8); Alkaline Phosphatase 100 U/L (46-116); Anion Gap 13 (5-15); Aspartate Aminotransferase 24 U/L (13-40); BUN/Creatinine Ratio 13.7 (10.0-20.0); Bilirubin, Total 0.2 mg/dL (0.2-1.0); Calcium 7.8 mg/dL (8.7-10.4); Carbon Dioxide 21 mmol/L (20-30); Chloride 101 mmol/L (98-107); Glucose 92 mg/dL (74-106); Potassium 3.1 mmol/L (3.5-5.1); Sodium 135 mmol/L (136-145); Total Protein 5.1 g/dL (5.7-8.2)
[2023-03-07 04:53] LABS: Band Neutrophils % (manual) 0; Basophils % (manual) 0 (0.0-2.0); Blast Cells 0; Eosinophils % (manual) 0 (0-7); Monocytes % (manual) 0 (0-12); Myelocytes % 0; Promyelocytes % 0; Reactive Lymphocytes 0
[2023-03-07 05:00] LABS: Blood Urea Nitrogen 47 mg/dL (9-23)
[2023-03-07] MEDS: MIDODRINE HCL 10 MG TAB PO SCH ×3 (05:45→18:00)
[2023-03-07] MEDS: METOCLOPRAMIDE HCL 5MG/ml INJ 2ml VIAL IV SCH ×3 (06:11→21:49)
[2023-03-07 07:36] LABS: Lymphocytes % (manual) 4 (10.0-50.0); Metamyelocytes % 1
[2023-03-07 07:37] LABS: Platelet Estimate Increased
[2023-03-07] MEDS ORDERED: MAGNESIUM SULFATE 1GM/100ML 100 ML IV ONE (09:15)
[2023-03-07] MEDS ORDERED: POTASSIUM CHL 20MEQ/100ML 100 ML IV SCH (09:15)
[2023-03-07] MEDS ORDERED: POTASSIUM CHL 20MEQ/100ML 100 ML IV ONE (09:45)
[2023-03-07] MEDS: DULoxetine HCL 30 MG CAP PO SCH ×2 (09:46→21:49)
[2023-03-07] MEDS: MEGESTROL ACET 400MG/10ML ORAL SUSP PO SCH (09:46)
[2023-03-07] MEDS: LINEZOLID 600MG/300ML 300 ML IV SCH ×2 (09:57→22:27)
[2023-03-07] MEDS ORDERED: MIDAZOLAM HCL 2MG/2ML 2ml VIAL (1mg/ml) ONE (09:57)
[2023-03-07] MEDS ORDERED: fentaNYL CITRATE 100 MCG/2 ML VL ONE (09:57)
[2023-03-07] MEDS ORDERED: HYDROmorphone HCL 2 MG/ML VL/or syr ONE (09:58)
[2023-03-07] MEDS: HEPARIN SODIUM (PORCINE) 5000 UNITS/ML 1ML VIAL SC SCH ×2 (10:00→21:59)
[2023-03-07] MEDS: SODIUM CHLOR 0.9% PF (SALINE LOCK) 10ML VIAL/SYR IV SCH ×2 (10:00→21:49)
[2023-03-07] MEDS ORDERED: IODIXANOL 320MG/ML 100ML BTL IV ONE (10:13)
[2023-03-07] MEDS ORDERED: LIDOCAINE 2%HCL (LOCAL ANESTH.) INJ 20ML MDV ONE (10:13)
[2023-03-07] MEDS: PANTOPRAZOLE 40 MG/10 ML VIAL INJ IV SCH (11:07)
[2023-03-07] MEDS: CEFEPIME 1GM/ 50ML 50 ML IV SCH (11:15)
[2023-03-07] MEDS ORDERED: HYDROmorphone HCL 2 MG/ML VL/or syr IV PRN (11:30)
[2023-03-07] MEDS ORDERED: BUMETANIDE 2.5mg/10ml (0.25 mg/ml) INJ IV ONE (12:30)
[2023-03-07] MEDS ORDERED: TPN PER PHARMACY 0 ML IV SCH (12:30)
[2023-03-07 13:27] LABS: Phosphorus 7.9 mg/dL (2.4-5.1)
[2023-03-07] MEDS ORDERED: MORPHINE SULFATE INJ 2 MG/ml SYRG IV PRN (15:30)
[2023-03-07] MEDS: HYDROmorphone HCL 2 MG/ML VL/or syr IV PRN ×3 (16:44→22:34)
[2023-03-07] MEDS ORDERED: BUMETANIDE INJECTION 25 MG in GIVE UN-DILUTED 0 ML IV SCH (17:45)
[2023-03-07] MEDS: OLANZAPINE 20 MG PO SCH (18:00)
[2023-03-07] MEDS ORDERED: AMINO ACID INFUSION IN D10W 1,000 ML IV NR (20:00)
[2023-03-08] VITALS (74 sets, daily range): BP systolic 80–116; BP diastolic 41–74; PULSE 67–138; RESP 11–26; TEMP 96.9–98.7; O2SAT 1–100
[2023-03-08] MEDS ORDERED: DEXTROSE (50%) 50ML SYRG IV SCH
[2023-03-08] MEDS: ACCU-CHEK COMFORT CURVE STRIP VI SCH ×3 (00:01→12:00)
[2023-03-08] MEDS: InsuLIN REG 1unit/0.01ml Soln (100units/ml) SC SCH ×3 (00:01→12:36)
[2023-03-08] MEDS: HYDROmorphone HCL 2 MG/ML VL/or syr IV PRN ×3 (02:38→09:58)
[2023-03-08 04:28] LABS: Hemoglobin 7.5 g/dL (12.2-16.2)
[2023-03-08 04:29] LABS: Hematocrit 23.5 % (36.0-46.0); Mean Corpuscular Hemoglobin 29.4 pg (28.0-32.0); Mean Corpuscular Hgb Conc. 31.9 g/dL (32.0-36.0); Mean Corpuscular Volume 92.3 fL (80.0-100.0); Red Blood Cells 2.55 10^6/uL (4.0-5.20); Red Cell Distribution Width 19.2 % (11.8-14.3); White Blood Cell 22.7 10^3/uL (4.4-10.8)
[2023-03-08 04:46] LABS: Alanine Aminotransferase 60 U/L (7-40); Albumin 2.9 g/dL (3.2-4.8); Alkaline Phosphatase 112 U/L (46-116); Anion Gap 11 (5-15); Aspartate Aminotransferase 175 U/L (13-40); BUN/Creatinine Ratio 15.6 (10.0-20.0); Basophils % (manual) 0 (0.0-2.0); Blast Cells 0; Calcium 8.3 mg/dL (8.5-10.1); Carbon Dioxide 21 mmol/L (20-30); Chloride 100 mmol/L (98-107); Eosinophils % (manual) 0 (0-7); Glucose 141 mg/dL (74-106); Potassium 3.2 mmol/L (3.5-5.1); Promyelocytes % 0; Reactive Lymphocytes 0; Sodium 132 mmol/L (136-145); Triglycerides 251 mg/dL (< 150)
[2023-03-08 04:47] LABS: Bilirubin, Total < 0.2 mg/dL (0.2-1.0); Blood Urea Nitrogen 60 mg/dL (9-23); Phosphorus 8.5 mg/dL (2.4-5.1); Total Protein 5.6 g/dL (5.7-8.2)
[2023-03-08 04:57] LABS: Magnesium 2.2 mg/dL (1.6-2.6)
[2023-03-08] MEDS: METOCLOPRAMIDE HCL 5MG/ml INJ 2ml VIAL IV SCH (05:23)
[2023-03-08] MEDS: MIDODRINE HCL 10 MG TAB PO SCH ×2 (05:23→12:00)
[2023-03-08 05:51] LABS: Band Neutrophils % (manual) 7; Lymphocytes % (manual) 4 (10.0-50.0); Metamyelocytes % 3; Monocytes % (manual) 2 (0-12); Myelocytes % 1
[2023-03-08 05:52] LABS: Anisocytosis Slight; Platelet Estimate Increased
[2023-03-08] MEDS: DULoxetine HCL 30 MG CAP PO SCH (09:04)
[2023-03-08] MEDS: MEGESTROL ACET 400MG/10ML ORAL SUSP PO SCH (09:04)
[2023-03-08 09:18] LABS: Base Excess -8.3 mmol/L (-2.0-2.0)
[2023-03-08] MEDS: POTASSIUM CHL 20MEQ/100ML 100 ML IV SCH ×2 (09:47→10:45)
[2023-03-08] MEDS: PANTOPRAZOLE 40 MG/10 ML VIAL INJ IV SCH (09:48)
[2023-03-08] MEDS: LINEZOLID 600MG/300ML 300 ML IV SCH (09:54)
[2023-03-08] MEDS: SODIUM CHLOR 0.9% PF (SALINE LOCK) 10ML VIAL/SYR IV SCH (10:00)
[2023-03-08] MEDS: HEPARIN SODIUM (PORCINE) 5000 UNITS/ML 1ML VIAL SC SCH (10:30)
[2023-03-08] MEDS ORDERED: CEFEPIME 1GM/ 50ML 50 ML IV SCH (12:00)
[2023-03-08] MEDS ORDERED: HYDROmorphone HCL 2 MG/ML VL/or syr IV PRN ×2 (12:45→13:45)
[2023-03-08] MEDS ORDERED: LORazepam 2MG/ML-1ML VIAL IV PRN (14:45)
[2023-03-08] MEDS ORDERED: TPN PER PHARMACY IV NR ×7 (20:00)
== END 2023-03-08 17:39 | DRG 871 ==
LOC: ER 02:23 → EDBD 02:29 → TELE 09:07 → ICU WEST 03-03 23:26 → TELE-EAST 03-03 23:30 → ICU WEST 03-05 16:59
PROVIDERS: ADMIT Nurse Practitioner Family; ATTEND Internal Medicine Pulmonary Disease
PROC: 0D9670Z Drainage of Stomach with Drainage Device, Via Natural or Artificial Opening (ICD-10-PCS; principal; 2023-03-06)
PROC: 02HV33Z Insertion of Infusion Device into Superior Vena Cava, Percutaneous Approach (ICD-10-PCS; 2023-03-06)
PROC: B548ZZA Ultrasonography of Superior Vena Cava, Guidance (ICD-10-PCS; 2023-03-06)
PROC: 0T9030Z Drainage of Right Kidney with Drainage Device, Percutaneous Approach (ICD-10-PCS; 2023-03-07)
DX: A41.9 Sepsis, unspecified organism (principal); G93.41 Metabolic encephalopathy; J96.01 Acute respiratory failure with hypoxia; J69.0 Pneumonitis due to inhalation of food and vomit; C16.9 Malignant neoplasm of stomach, unspecified; N17.9 Acute kidney failure, unspecified; R18.8 Other ascites; N13.30 Unspecified hydronephrosis; K56.600 Partial intestinal obstruction, unspecified as to cause; E46 Unspecified protein-calorie malnutrition; Z20.822 Contact with and (suspected) exposure to COVID-19; N18.31 Chronic kidney disease, stage 3a; R56.9 Unspecified convulsions; E86.0 Dehydration; D64.9 Anemia, unspecified; D75.839 Thrombocytosis, unspecified; E88.09 Other disorders of plasma-protein metabolism, not elsewhere classified; I12.9 Hypertensive chronic kidney disease with stage 1 through stage 4 chronic kidney disease, or unspecified chronic kidney disease; I95.9 Hypotension, unspecified; E87.6 Hypokalemia; I46.9 Cardiac arrest, cause unspecified; Z88.0 Allergy status to penicillin; Z83.3 Family history of diabetes mellitus; Z68.28 Body mass index [BMI] 28.0-28.9, adult
CPT/HCPCS: 36415; 36569; 36600; 50432; 70450; 71045; 71260; 72125; 74177; 74250; 74425; 76705; 76775; 76942; 80048; 80053; 80307; 80320; 81001; 82140; 82150; 82306; 82542; 82570; 82805; 82962; 83605; 83690; 83735; 83880; 83970; 84100; 84156; 84300; 84443; 84478; 85007; 85014; 85018; 85025; 85027; 85610; 85730; 86850; 86900; 86901; 87040; 87081; 87086; 87088; 87426; 87804; 93005; 96365; 99152; 99291; C9113; G0378; J1956; J2250; J2405; J3480; J3490; J7060; Q9967